=== PATIENT | male | born 1995 | race Two or more races ===

== ENCOUNTER 2021-03-29 01:24 | Emergency (ER) | payer SELFPAY ==
[~2021-03-29] VITALS: Ht 170.2 cm; Wt 99.8 kg
[2021-03-29 01:28] VITALS: BP 142/86
== END 2021-03-29 06:39 | disposition left against medical advice (07) ==
LOC: EDBD 01:24 → ER 01:24
DX: M79.642 Pain in left hand (principal); Z53.21 Procedure and treatment not carried out due to patient leaving prior to being seen by health care provider
CPT/HCPCS: 73120